=== PATIENT | female | born 1955 | race Caucasian/White ===

== ENCOUNTER → 2016-05-04 | Outpatient (CLI) | payer MEDICARE, BC, OTHER ==
--- NOTE | 2016-05-04 15:13 | REPMRS ---
Patient History The patient states she had a clinical breast exam in 05/02 Family history of unknown cancer in sister at age 42, breast cancer in mother at age 50 or over, and breast cancer in maternal aunt at age 50 or over. Radio exam Breast Specimen, June 12, 2011. Benign localization of breast nodule of the left breast, June 12, 2011. Took hormonal contraceptives for 10 years. Took unspecified hormones for 6 years. Digital Woman Screen Mammo: May 04, 2016 - Exam #: [id number] Bilateral CC and MLO view(s) were taken. Technologist: Deisy Benítez, Technologist Prior study comparison: April 27, 2015, bilateral digital mammo screening bilat, performed at [facility]. April 14, 2014, bilateral digital mammo screening bilat, performed at [facility]. March 31, 2013, bilateral digital mammo screening bilat, performed at [facility]. FINDINGS: There are scattered fibroglandular densities. There has been no change in the appearance of the mammogram from the prior studies. There is a mild amount of scattered fibroglandular density which is fairly symmetric. There is no interval development of dominant mass, architectural distortion, or clustered microcalcification suggestive of malignancy. ASSESSMENT: BI-RADS/ACR category 1 mammogram. Negative. Recommendation Routine screening mammogram in 1 year (for women over age 40). This mammogram was interpreted with the aid of an FDA-approved computer-aided dectection system. Electronically Signed By: Jeremi Landin MD 05/04/16 [id number]
--- NOTE | 2016-05-08 10:33 | DEXA ---
AP SPINE L1 - L4 0.987 -1.7 -0.6 LT FEMUR TOTAL 0.842 -1.3 -0.5 RT FEMUR TOTAL 0.839 -1.3 -0.5 TOTAL BODY TOTAL OTHER DUAL FEMUR FRAX* ASSESSMENT Risk factors: History of fracture (adult). 10 year probability of fracture Major osteoporotic fracture 16.4 % Hip fracture 2.2 % COMMENTS: There is low bone density of the spine and hips. The density of the spine has decreased 17.3% since the initial exam on 2007. The spine density has decreased 16.7% since the most recent exam on 04/03/2012. The density of the left hip has decreased 18.7% since the initial exam on 2007. The density of the left hip has decreased 18.3% since the most recent exam on . The density of the right hip has decreased 15.8% since the initial exam on 02/18. The density of the right hip has decreased 20.0 percent since the most recent exam on 04/03/2012. FOLLOW-UP: Recommendation for the next bone density exam: 2 years. YULIET
== END ==
LOC: M WHC 14:14
PROVIDERS: ATTEND Obstetrics & Gynecology
DX: Z13.820 Encounter for screening for osteoporosis (principal); Z12.31 Encounter for screening mammogram for malignant neoplasm of breast; M89.9 Disorder of bone, unspecified; Z80.3 Family history of malignant neoplasm of breast; Z79.3 Long term (current) use of hormonal contraceptives; Z79.890 Hormone replacement therapy
CPT/HCPCS: 77080; G0202

== ENCOUNTER → 2017-05-15 | Outpatient (CLI) | payer MEDICARE, BC | LOC: M WHC 12:39 | DX: Z12.31 Encounter for screening mammogram for malignant neoplasm of breast (principal) | CPT/HCPCS: 77067 ==

== ENCOUNTER → 2018-05-15 | Outpatient (CLI) | payer MEDICARE, BC ==
--- NOTE | 2018-05-15 12:37 | REPMRS ---
Patient History The patient states she had a clinical breast exam in 05/04 Family history of breast cancer at age 50 or over in mother, breast cancer at age 50 or over in maternal aunt, unknown cancer at age 42 in sister. Radio exam Breast Specimen, June 12, 2011. Benign localization of breast nodule of the left breast, June 12, 2011. Took hormonal contraceptives for 10 years. Took unspecified hormones for 6 years. 3D TOMOSYNTHESIS WAS PERFORMED. Digital Woman Screen Mammo: May 15, 2018 - Exam #: [id number] Bilateral CC and MLO view(s) were taken. Technologist: Deisy Benítez, Technologist Prior study comparison: May 15, 2017, digital woman screen mammo performed at [facility]. May 04, 2016, digital woman screen mammo performed at [facility] [employer]. FINDINGS: The breast tissue is heterogeneously dense. This may lower the sensitivity of mammography. There has been no change in the appearance of the mammogram from the prior studies. There is a moderate amount of residual fibroglandular tissue which is fairly symmetric. There is no interval development of dominant mass, areas of architectural distortion, or clustered microcalcification typical of malignancy. Assessment: BI-RADS/ACR category 1 mammogram. Negative Mammogram. Recommendation Routine screening mammogram in 1 year (for women over age 40). This mammogram was interpreted with the aid of an FDA-approved computer-aided dectection system. THE LIFETIME RISK OF BREAST CANCER IS 29.3%, THEREFORE SUPPLEMENTAL SCREENING MRI OF THE BREASTS IS RECOMMENDED. Electronically Signed By: Tyler Fraire MD 05/15/18 1999
== END ==
LOC: M WHC 11:47
PROVIDERS: ATTEND Obstetrics & Gynecology
DX: Z12.31 Encounter for screening mammogram for malignant neoplasm of breast (principal); Z92.0 Personal history of contraception

== ENCOUNTER → 2019-05-28 | Outpatient (CLI) | payer MEDICARE, BC ==
--- NOTE | 2019-05-28 15:45 | REPMRS ---
Patient History The patient states she had a clinical breast exam in April 2019. Patient is postmenopausal. Patient has a history of skin melanoma at age 63. Family history of breast cancer at age 50 or over in mother, breast cancer at age 50 or over in maternal aunt, unknown cancer at age 42 in sister. Radio exam Breast Specimen, June 12, 2011. Benign localization of breast nodule of the left breast, June 12, 2011. Took hormonal contraceptives for 10 years. Taking unspecified hormones for 30 years. Digital Woman Screen Mammo: May 28, 2019 - Exam #: [id number] Bilateral CC and MLO view(s) were taken. Technologist: Tabitha Florence, Technologist Prior study comparison: May 15, 2018, bilateral digital woman screen mammo performed at [facility]. May 15, 2017, digital woman screen mammo performed at [facility]. May 04, 2016, digital woman screen mammo performed at [facility]. FINDINGS: There are scattered fibroglandular densities. A metallic device is again noted projecting over the left axillary soft tissues as seen previously. There has been no change in the appearance of the mammogram from the prior studies. There is a mild amount of scattered fibroglandular density which is fairly symmetric. There is no interval development of dominant mass, architectural distortion, or grouped microcalcification suggestive of malignancy. 3-D tomosynthesis shows no additional findings. Assessment: BI-RADS/ACR category 2 mammogram. Benign Findings. Recommendation Breast MRI of both breasts in 6 months. Routine screening mammogram of both breasts in 1 year (for women over age 40). This patient's Lifetime Breast Cancer Risk is estimated at 28.1 %. Annual screening Breast MRI scanniing is recommended for patient's whose lifetime risk assessment is over 20%. This mammogram was interpreted with the aid of an FDA-approved computer-aided dectection system. Electronically Signed By: Jeremi Landin MD 05/28/19 [id number]
--- NOTE | 2019-06-02 14:36 | DEXA ---
AP SPINE L1 - L4 1.095 -0.8 0.8 LT FEMUR TOTAL 0.854 -1.2 0.0 LT NECK 0.766 -2.0 -0.5 RT FEMUR TOTAL 0.845 -1.3 -0.1 RT NECK 0.788 -1.8 -0.3 TOTAL BODY TOTAL OTHER COMMENTS: Normal bone densitometry of the spine. There is low bone density of the hips. The density of the spine has decreased 8.2% since the initial exam on 02/19/2008. The spine density has increased 10.9% since the most recent exam on 05/04/2016. The density of the left hip has decreased 17.6% since the initial exam on 02/19/2008. The density of the left hip has increased 1.4% since the most recent exam on 05/04/2016. The density of the right hip has decreased 15.2% since initial exam on 02/19/2008. The density of the right hip has increased 0.7% since the most recent exam on 05/04/2016. FOLLOW-UP: Recommendation for the next bone density exam: 2 years.. YULIET
== END ==
LOC: M WHC 13:36
PROVIDERS: ATTEND Obstetrics & Gynecology
DX: Z12.31 Encounter for screening mammogram for malignant neoplasm of breast (principal); Z13.820 Encounter for screening for osteoporosis; Z80.3 Family history of malignant neoplasm of breast; Z85.820 Personal history of malignant melanoma of skin; M85.851 Other specified disorders of bone density and structure, right thigh; M85.852 Other specified disorders of bone density and structure, left thigh

== ENCOUNTER → 2020-01-12 | Outpatient (REF) | payer MEDICARE, BC ==
[2020-01-12 13:23] LABS: BLOOD UREA NITROGEN 16 MG/DL (7-18); CREATININE FOR GFR 0.69 MG/DL (0.55-1.30); GLOMERULAR FILTRATION RATE > 60.0 (>45)
== END ==
LOC: M LAB REF 12:20
PROVIDERS: ATTEND Obstetrics & Gynecology
DX: Z80.3 Family history of malignant neoplasm of breast (principal)

== ENCOUNTER → 2020-02-06 | Outpatient (CLI) | payer MEDICARE, BC, OTHER ==
[~2020-02-06] MED LIST: PROHANCE 279.3MG/ML 15ML VIAL As Ordered ONE
--- NOTE | 2020-02-06 12:09 | REP ---
INDICATION: Z80.3-FAMILY HISTORY OF MALIGNANT NEOPLASM OF BREAST CANCER. EulalioGwen lifetime risk of breast cancer 28.1% COMPARISON: Mammogram 05/28/2019 TECHNIQUE: [facility] MRI imaging was performed with a dedicated breast coil. Axial, coronal, and sagittal T1 and T2 weighted scans were obtained with and without fat saturation in the usual fashion. The study includes dynamically acquired post gadolinium-enhanced imaging with image subtraction. Maximum intensity projection and multi planar reformation imaging is included as well. This study is interpreted with the aid of [employer], an FDA approved computer aided detection (CAD) software program, on a dedicated breast MRI workstation. The gadolinium enhancement dose is 15 mL of intravenous ProHance. FINDINGS: There is mild to moderate scattered fibroglandular tissue bilaterally. There is mild background parenchymal enhancement bilaterally. No significant cystic changes seen in either breast. Metallic device causes focal artifacts in the posteromedial superior right breast. I see no suspicious enhancing mass or morphologic abnormality. There is no axillary adenopathy. IMPRESSION: BI-RADS category 1-bilateral breast MRI. No suspicious enhancing mass or morphologic abnormality. Yearly supplemental screening MRI of the breasts is recommended for patients with an elevated lifetime risk of breast cancer of 20% or greater, in addition to annual screening mammography, staggered every 6 months. <Electronically signed by Tyler Fraire > 02/06/20 [id number]
== END ==
LOC: M RAD 10:34
PROVIDERS: ATTEND Obstetrics & Gynecology
DX: N64.89 Other specified disorders of breast (principal); Z80.3 Family history of malignant neoplasm of breast
CPT/HCPCS: A9576; C8908

== ENCOUNTER → 2020-05-31 | Outpatient (CLI) | payer MEDICARE, BC ==
--- NOTE | 2020-05-31 11:20 | REPMRS ---
Patient History The patient states she had a clinical breast exam in April 2020. Patient is postmenopausal and has history of other cancer at age 63. Family history of breast cancer at age 50 or over in mother, breast cancer at age 50 or over in maternal aunt, unknown cancer at age 42 in sister, breast cancer at age 63 in maternal half sister. Radio exam Breast Specimen, June 12, 2011. Benign localization of breast nodule of the left breast, June 12, 2011. Took hormonal contraceptives for 10 years. Took unspecified hormones for 30 years. Digital Woman Screen Mammo: May 31, 2020 - Exam #: [id number] Bilateral CC and MLO view(s) were taken. Technologist: Tabitha Florence, Technologist Prior study comparison: May 28, 2019, bilateral digital woman screen mammo performed at [facility]. May 15, 2018, bilateral digital woman screen mammo performed at [facility]. May 15, 2017, digital woman screen mammo performed at [facility]. FINDINGS: There are scattered fibroglandular densities. The Vol[employer] volumetric breast density category is:B. There has been no change in the appearance of the mammogram from the prior studies. There is a mild amount of scattered fibroglandular density which is fairly symmetric. There is no interval development of dominant mass, architectural distortion, or grouped microcalcification suggestive of malignancy. 3-D tomosynthesis shows no additional findings. Assessment: BI-RADS/ACR category 1 mammogram. Negative Mammogram. Recommendation Breast MRI of both breasts in 6 months. Routine screening mammogram of both breasts in 1 year (for women over age 40). This patient's [facility] Lifetime Breast Cancer Risk is estimated at 29.0 %. Annual screening Breast MRI scanniing is recommended for patient's whose lifetime risk assessment is over 20%. This mammogram was interpreted with the aid of an FDA-approved computer-aided dectection system. Electronically Signed By: Jeremi Landin MD 05/31/20 [id number]
== END ==
LOC: M WHC 10:19
PROVIDERS: ATTEND Obstetrics & Gynecology
DX: Z12.31 Encounter for screening mammogram for malignant neoplasm of breast (principal); Z80.3 Family history of malignant neoplasm of breast

== ENCOUNTER → 2020-12-03 | Outpatient (CLI) | payer MEDICARE, BC, OTHER ==
--- NOTE | 2020-12-03 15:59 | REP ---
INDICATION: 6 MONTH F/U BREAST DENSITIES. COMPARISON: Mammogram 02/06/2020. 05/31/2020, MRI TECHNIQUE: Three Amie MRI imaging was performed with a dedicated breast coil. Axial, coronal, and sagittal T1 and T2 weighted scans were obtained with and without fat saturation in the usual fashion. The study includes dynamically acquired post gadolinium-enhanced imaging with image subtraction. Maximum intensity projection and multi planar reformation imaging is included as well. This study is interpreted with the aid of [employer], an FDA approved computer aided detection (CAD) software program, on a dedicated breast MRI workstation. The gadolinium enhancement dose is 15 mL of intravenous ProHance. FINDINGS: There is mild fibroglandular tissue scattered bilaterally. No significant cystic change is seen in either breast. There is no axillary adenopathy. There is mild background parenchymal enhancement. There is no suspicious enhancing mass or morphologic abnormality. IMPRESSION: BI-RADS category 1, negative bilateral breast MRI. No suspicious enhancing mass or morphologic abnormality. Yearly supplemental screening MRI of the breasts is recommended for patients with an elevated lifetime risk of breast cancer of 20% or greater, in addition to annual screening mammography, staggered every 6 months. <Electronically signed by Tyler Fraire > 12/03/20 [id number]
== END ==
LOC: M RAD 13:16
PROVIDERS: ATTEND Obstetrics & Gynecology
DX: R92.8 Other abnormal and inconclusive findings on diagnostic imaging of breast (principal); Z80.3 Family history of malignant neoplasm of breast
CPT/HCPCS: A9576; C8908

== ENCOUNTER → 2021-06-29 | Outpatient (CLI) | payer MEDICARE, BC, OTHER | LOC: M WHC 10:47 | PROVIDERS: ATTEND Advanced Practice Midwife | DX: Z13.820 Encounter for screening for osteoporosis (principal); Z12.31 Encounter for screening mammogram for malignant neoplasm of breast ==

== ENCOUNTER → 2022-07-11 | Outpatient (CLI) | payer MEDICARE, BC, OTHER | LOC: M WHC 12:20 | PROVIDERS: ATTEND Obstetrics & Gynecology | DX: R92.8 Other abnormal and inconclusive findings on diagnostic imaging of breast (principal) | CPT/HCPCS: 77066; G0279 ==

== ENCOUNTER → 2023-07-02 | Outpatient (CLI) | payer MEDICARE, BC, OTHER | LOC: M WHC 09:57 | PROVIDERS: ATTEND Obstetrics & Gynecology | DX: Z12.31 Encounter for screening mammogram for malignant neoplasm of breast (principal); Z13.820 Encounter for screening for osteoporosis; M85.851 Other specified disorders of bone density and structure, right thigh; M85.852 Other specified disorders of bone density and structure, left thigh ==

== ENCOUNTER → 2024-07-03 | Outpatient (CLI) | payer MEDICARE, BC | LOC: M WHC 10:19 | PROVIDERS: ATTEND Obstetrics & Gynecology | DX: Z12.31 Encounter for screening mammogram for malignant neoplasm of breast (principal) ==